=== PATIENT | male | born 1940 | race Caucasian/White ===

== ENCOUNTER 2024-01-28 12:15 | Emergency (ER) | payer MEDICARE, SELFPAY ==
[2024-01-28 12:15] VITALS: O2SAT 97
[2024-01-28 12:16] VITALS: BP 152/77; PULSE 67; RESP 16; TEMP 36.8; O2SAT 97; BMI 32.2
--- NOTE | 2024-01-28 12:31 | EDS_ITS ---
HPI History of Present Illness Chief Complaint: Shortness of Breath Informant: patient Onset/Context/Timing Onset: Yesterday Context: sudden Timing: Continuous Quality: Positive for Orthopnea Worsened by: Lying flat (Laying on left side) Relieved by: other (Sitting up) Associated Symptoms cough, fever, sore throat, subjective and white sputum; Negative for rhinorrhea, post nasal drip, ear pain, chills, sweats, clear sputum, yellow sputum or green sputum Narrative Narrative: Patient presents with shortness of breath that began yesterday. Patient states it began rather suddenly. Patient states his breathing is worse whenever he lays on his left side. Patient states he is coughing up some white foamy sputum. Patient admits to subjective fever. Patient denies any chest pain. Patient does admit to a sore throat. Patient denies any rhinorrhea or ear pain. The patient states his breathing is better when he is able to sit up. PE Risk Factors: Positive for Recent travel; Negative for Cancer, Recent immobilization or Recent surgery PFSH [facility] Medical History (Updated 01/28/24 @ 15:[address] Keegan Cho DO) Hypercholesterolemia Hypertension GERD (gastroesophageal reflux disease) Home Medications ?Medication ?Instructions ?Recorded ?Last Taken ?Type albuterol sulfate 90 mcg/actuation 1 - 2 puff inhalation Q4H PRN PRN 01/28/24 Unknown Rx aerosol inhaler (Ventolin HFA) Wheezing ##1 hydrocodone-acetaminophen 5-325mg 1 tab PO Q6H PRN PRN Pain 3 days 01/28/24 Unknown Rx 5mg-325mg #10 TABLETS Allergy/AdvReac Type Severity Reaction Status Date / Time No Known Allergies Allergy Verified 01/28/24 12:15 Surgical History Hx of tracheostomy Social History Smoking Status: Never smoker ROS ROS ED Constitutional Constitutional ED: Reports fever(s); Denies chills Eyes Eyes: Denies blurry vision or change in vision ENT ENT ED: Reports sore throat; Denies rhinorrhea Cardiovascular Cardiovascular: Denies chest pain or palpitations Respiratory/Chest Respiratory/Chest: Reports cough and dyspnea Gastrointestinal Gastrointestinal: Denies nausea or vomiting Genitourinary Genitourinary ED: Denies dysuria or hematuria Musculoskeletal Musculoskeletal: Reports back pain; Denies neck pain Integumentary Denies abscess or rash Neurologic Neurologic: Denies headache(s) or weakness Allergic/Immunologic Allergic/Immunologic ED: Denies mouth swelling or urticaria EXAM Physical Exam Const Vital Signs: 01/28/24 12:15 01/28/24 12:16 01/28/24 14:15 Temperature 98.2 F Temperature Source Oral Pulse Rate 67 73 Respiratory Rate 16 22 H Respiratory Effort Short of Breath Respiratory Depth Normal Respiratory Pattern Normal Blood Pressure 152/77 H 152/83 H Blood Pressure Mean 102 106 Pulse Ox 97 97 Oxygen Delivery Method Room Air Room Air Positive well nourished and well developed General Appearance ED: well developed and NAD HEENT Reports moist mucous membranes Neck supple and no JVD Resp normal respiratory effort Auscultation: diminished lung sounds left lower Cardio regular rate and regular rhythm GI non-tender and non-distended Palpation: soft Extremity normal to inspection General Extremety ED: Negative for edema or tenderness General Extremity: Negative for edema Neuro oriented x3, CN's II-XII intact bilaterally and no sensory deficits noted Greg Coma Scale: document GCS findings Spontaneous Obeys Commands Oriented 15 Psych mental status grossly normal MDM MDM MDM Narrative Medical decision making narrative: Differential diagnosis includes pneumonia, congestive heart failure, pleural effusion, pulmonary embolism, viral respiratory infection, cardiac dysrhythmia, cardiac ischemia, and electrolyte abnormality. EKG from the urgent care was reviewed. This was not repeated here. Chest x-ray will be obtained to assess for congestive heart failure, pleural effusion, and pneumonia. CBC will be obtained to assess for leukocytosis and anemia. Basic metabolic profile will be obtained to assess for electrolyte abnormality and renal function. High- sensitivity troponin will be obtained to assess for cardiac ischemia. D-dimer will be obtained to assess for pulmonary embolism. BNP will be obtained to assess for congestive heart failure. COVID-19, influenza, and RSV PCR will be obtained to assess for viral illness. Lab Data Attestation: I reviewed the patient's lab results. Lab results narrative: CBC was reviewed. There is a mild anemia with a hemoglobin of 12.3 hematocrit 37.3. Basic metabolic profile was reviewed and was within normal limits. D- dimer was reviewed and was normal at 0.43. High-sensitivity troponin was reviewed and was normal at 12. BNP was reviewed with normal at 22. COVID-19 PCR was reviewed and was negative. Influenza PCR was reviewed and was negative for influenza A and influenza B. RSV PCR was reviewed and was negative. Labs: Laboratory Results - last 24 hr 01/28/24 12:51 WBC 6.4 RBC 4.09 L Hgb 12.3 L Hct 37.3 L MCV 91.2 MCH 30.1 MCHC 33.0 RDW Std Deviation 54.4 H RDW Coeff of [place] 16.2 H Plt Count 269 MPV 10.3 Immature Gran % (Auto) 0.300 Neut % (Auto) 46.1 L Lymph % (Auto) 35.7 [place] % (Auto) 13.1 H Eos % (Auto) 3.9 Baso % (Auto) 0.9 Absolute Neuts (auto) 2.9 Absolute Lymphs (auto) 2.27 Nucleated RBC % 0 D-Dimer Quant (PE/DVT) 0.43 Sodium 139 Potassium 4.3 Chloride 108 H Carbon Dioxide 27.0 Anion Gap 4 L BUN 21 H Creatinine 1.00 Estim Creat Clear Calc 61.84 Est GFR (MDRD) Af Amer 91 Est GFR (MDRD) Non-Af 76 BUN/Creatinine Ratio 21.0 H Glucose 109 H Calcium 8.8 Troponin I High Sens 12 B-Natriuretic Peptide 22.0 Radiography Chest X-Ray - ED: 2 View, Read by ED Physician, Read by Radiologist and No Acute Disease Diagnostic Testing: Clinical Impression(s) from Imaging Studies Chest X-Ray 01/28/24 13:04 IMPRESSION: Mild bibasilar atelectasis. Electronically Signed: Paula Us MD at 13:43 EDT , PA and lateral chest x-ray was obtained. There are 2 views. On my independent interpretation, lung lowe showed mild bibasilar atelectasis. There is normal cardiac silhouette. Bony thorax is normal. There is no acute process noted. Radiologist also interpreted the x-ray and agrees. EKG Initial EKG: Attestation: I personally reviewed and interpreted this EKG as follows: Interpretation: Sinus Rhythm (61), No Acute Injury Pattern and RBBB (Incom plete) Prior EKG tracings: not available for review Prior: No Prior Treatment and Re-Evaluation :: Patient was given a dose of [place] for his back pain. Patient was feeling better on reevaluation. Patient was advised of his findings. Patient was given a prescription for an albuterol inhaler and a prescription for a short course of [place]. Patient was instructed to follow-up with his primary care physician in 7 to 10 days. Patient understood and was agreeable with the plan. All questions were answered. Discharge Plan Triage Chief Complaint: Shortness of Breath ED Provider: Keegan Cho Dx/Rx/DC Orders Clinical Impression: Dyspnea, Chronic back pain, Hypertension Instructions: ED Dyspnea Prescriptions: New hydrocodone-acetaminophen 5-325 mg tablet 1 tab PO Q6H PRN PRN (Reason: Pain) 3 Days Qty: 10 0RF albuterol sulfate [Ventolin HFA] 90 mcg/actuation HFA aerosol inhaler 1 - 2 puff inhalation Q4H PRN PRN (Reason: Wheezing) Qty: 1 0RF Primary Care Provider: Princess Esqueda,Out of Referrals: Princess Doctor,Out of [Primary Care Provider] - Print Language: Micronesian Disposition Disposition: Home, Self Care
--- NOTE | 2024-01-28 13:04 | RAD_ITS ---
HISTORY: Cough. TECHNIQUE: XR Chest 2 Views. COMPARISON: None. FINDINGS: CARDIOMEDIASTINAL BORDERS: Cardiac silhouette within normal limits in size. Mediastinal contour within normal limits in size with calcification of the aortic knob and tracheostomy tube tip at the level of the clavicular heads. LUNGS: Calcified left lower lobe granuloma. Mild linear bibasilar opacities PLEURA: No pleural effusion or pneumothorax seen. OTHER: Degenerative changes of the osseous structures. Implanted loop recorder in the left chest wall. Right upper quadrant surgical clips. RAD/Chest PA and Lateral IMPRESSION: Mild bibasilar atelectasis. Electronically Signed: Paula Us MD at 13:43 EDT ,
[2024-01-28 13:12] LABS: Absolute Lymphocyte Count 2.27 X10^3/uL (0.83-4.51); Absolute Neutrophil Count 2.9 X10^3/uL (2.0-7.7); Basophil# 0.06 X10^3/uL; Basophil% 0.9 % (0-1); Eosinophil# 0.25 X10^3/uL; Eosinophils% 3.9 % (0-5); Hematocrit 37.3 % (40-54); Hemoglobin 12.3 g/dL (13.0-16.5); Lymphocyte # 2.27 X10^3/ul (0.83-4.51); Lymphocyte % 35.7 % (19-41); Mean Corpuscular Hgb 30.1 pg (27.0-32.0); Mean Corpuscular Volume 91.2 fL (80-94); Mean Platelet Vol. 10.3 fl (6.2-12.0); Monocyte# 0.83 X10^3/uL; Monocyte% 13.1 % (0-10); NRBC Flagged by Analyzer 0 % (0-5); Neutrophil # 2.92 X10^3/uL (2.7-7.7); Neutrophil % 46.1 % (47-70); Platelet Count 269 K/mm3 (150-450); RBC Distribution Width CV 16.2 % (11.6-14.6); RBC Distribution Width SD 54.4 fl (35.1-43.9); Red Blood Count 4.09 M/mm3 (4.6-6.2); White Blood Count 6.4 K/mm3 (4.4-11.0)
[2024-01-28 13:17] LABS: Anion Gap 4 (5-15); BUN 21 mg/dL (7-18); Calcium,Total 8.8 mg/dL (8.5-10.1); Chloride 108 mmol/L (98-107); EST Glomerular Filtration Rate 76 mL/min (>60); Est Glom Filt Rate - Afr Amer 91 mL/min (>60); Estimated Creatinine Clearance 61.84 ml/min; Glucose 109 mg/dL (74-106); Potassium 4.3 mmol/L (3.5-5.1); Sodium Level 139 mmol/L (136-145); Troponin-I HS 12 pg/mL (3.0-78.0)
[2024-01-28 13:26] LABS: D-Dimer Quantitative (DVT/PE) 0.43 FEU/ug/m (0.27-0.49)
[2024-01-28 14:15] VITALS: BP 152/83; PULSE 73; RESP 22; O2SAT 97
[2024-01-28] MEDS: HYDROcodone Bitartrate/Apap 5/325 Tablet PO (14:19)
[2024-01-28 15:49] VITALS: BP 162/71; PULSE 87; RESP 16; TEMP 36.6; O2SAT 98
== END 2024-01-28 15:51 | disposition home or self-care (01) ==
PROVIDERS: Emergency Provider Emergency Medicine; Visit Provider Emergency Medicine
DX: R06.02 Shortness of breath (principal); G89.29 Other chronic pain; I10 Essential (primary) hypertension; M54.9 Dorsalgia, unspecified; E78.00 Pure hypercholesterolemia, unspecified
CPT/HCPCS: 71046; 80048; 83880; 84484; 85025; 85379; 87631; 99284